=== PATIENT | female | born 1965 | race Caucasian/White ===

== ENCOUNTER 2018-12-30 09:12 | Day surgery (SDC) | payer OTHER ==
[~2018-12-30] VITALS: Ht 165.1 cm; Wt 66.5 kg
[~2018-12-30 09:12] MED LIST: (None)15 G1 EXT; ALEVE220 MG PO; AMABELZ 0.5 MG1 EACH PO; Aspir 8181 MG PO; Aspirin EC81 MG PO; DIPH50 PO; DOCU100 PO; ESTRADIOL-NORE1 EACH PO; EZET10 PO; FISH OIL 1,0001 EAC1 PO; FISH1000 PO; Flovent Diskus50 MCG IH; LAMISIL PO; LISI20; LISI20 PO; Multiple Vitam1 EAC1 PO; Multiple Vitam1 EACH PO; OLOP.1OPSO BOTHEYES; OMEPRAZOLE MAGN20 MG PO; PROBIOTIC1 EAC1 PO; Prilosec Otc20 MG; Transderm-Scop1 EACH TD; VITAMIN E COMPLETE PO; ZOLP5 PO
[2018-12-30] MEDS ORDERED: TOCO1000 PO (10:29)
[2018-12-30] MEDS ORDERED: TOPROPHAN CAPS1 EACH PO (10:31)
--- NOTE | 2018-12-30 14:50 | NUR ---
12/30/18 1450 Katie Cramer PT GLO PO SNACKS AND JUICE. DC INSTRUCTUIONS GIVEN AND H/O ON AIR CELL BOOT PLUS DEMO. REUSEABLE ICE PACK GIVEN AND PT AND HER SYLVIA STATED UNDERSTANDING. BILL TOOK RX TO PHARMACY WHILE PT WAS IN SURGERY. PT WAS GIVEN A NORCO AT 1300. DC'D IN STBLE CONDITION AT 1340 VIA WC AND SBA GLO WELL
== END 2018-12-30 13:40 | disposition home or self-care (01) ==
LOC: ORSCSDS 09:12
PROVIDERS: Orthopaedic Surgery
PROC: 0QBN0ZZ Excision of Right Metatarsal, Open Approach (ICD-10-PCS; principal; 2018-12-30 10:40)
DX: M20.21 Hallux rigidus, right foot (principal); I10 Essential (primary) hypertension; K21.9 Gastro-esophageal reflux disease without esophagitis; Z79.899 Other long term (current) drug therapy
CPT/HCPCS: J0690; J2250; J3010; J7120

== ENCOUNTER 2020-01-19 08:02 | Day surgery (SDC) | payer OTHER ==
[~2020-01-19] VITALS: Ht 165 cm; Wt 68.3 kg
[~2020-01-19 08:02] MED LIST changes: +BENADRYL25 M1 PO; +TOCO1000 PO; +TOPROPHAN CAPS1 EACH PO
--- NOTE | 2020-01-19 08:53 | NUR ---
Ambulatory in Day Surgery. History, Chart, Medications and Allergies reviewed before start of procedure.Patient confirms NPO status and agrees with scheduled surgery. Patient states colon prep results clear.Lungs clear T/O to Auscultation.
--- NOTE | 2020-01-19 09:47 | NUR ---
01/19/20 0947 Bolivar Harris History, Chart, Medications and Allergies reviewed before start of procedure.MONITOR INTACT WITH CONTINUOUS PULSE OXIMETRY AND INTERMITTENT BP.3-LEAD EKG REVIEWED WITH PHYSICIAN PRIOR TO START OF PROCEDURE.O2 VIA N/C INTACT THROUGHOUT SEDATION/PROCEDURE. PATIENT DETERMINED TO BE ASA APPROPRIATE FOR PROPOFOL SEDATION PRIOR TO START OF PROCEDURE BY DR. BETANCOURT.
--- NOTE | 2020-01-19 10:44 | NUR ---
Discharge instructions reviewed with patient. Patient verbalizes understanding. Copy given to patient to take home. Discharged via wheelchair to private car for ride home.
== END 2020-01-19 10:46 | disposition home or self-care (01) ==
LOC: ORSCMMR 08:02 → ORD 09:00 → ORSCMMR 10:46
PROVIDERS: Internal Medicine Gastroenterology
PROC: 0DBN8ZX Excision of Sigmoid Colon, Via Natural or Artificial Opening Endoscopic, Diagnostic (ICD-10-PCS; principal; 2020-01-19 09:00)
DX: Z12.11 Encounter for screening for malignant neoplasm of colon (principal); Z86.010 Personal history of colon polyps; D12.5 Benign neoplasm of sigmoid colon; K57.30 Diverticulosis of large intestine without perforation or abscess without bleeding; E78.00 Pure hypercholesterolemia, unspecified; I10 Essential (primary) hypertension; Z79.899 Other long term (current) drug therapy
CPT/HCPCS: 88305; J2704; J7120

== ENCOUNTER 2025-04-06 07:59 | Day surgery (SDC) | payer OTHER ==
[~2025-04-06] VITALS: Ht 162.6 cm; Wt 69.7 kg
[2025-04-06] VITALS (15 sets, daily range): BP systolic 111–141; BP diastolic 72–99
[~2025-04-06 07:59] MED LIST changes: +Flonase 0.05% N16 GM; -LISI20; +Lactated Ringer's 1,000 ML IV SCH; +VALA500 PO
[2025-04-06] MEDS ORDERED: propofoL 40 ML IV ONE (08:59)
--- NOTE | 2025-04-06 09:05 | NUR ---
04/06/25 0905 Bolivar Harris CONFIRMED AND REVIEWED H&P, MEDCICATIONS, ALLERGIES, MEDICAL HISTORY, RESPIRATORY HISTORY, VITAL SIGNS, 3-LEAD EKG, CONSENTS, AND PHYSICIAN ORDERS. PATIENT CONFIRMS NPO STATUS AND AGREES WITH SCHEDULED PROCEDURE. MONITOR INTACT WITH CONTINUOUS PULSE OXIMETRY, CAPNOGRAPHY, 3-LEAD EKG, INTERMITTENT BP. SUPPLEMENTAL O2 TO BE TITRATED THROUGHOUT PROCEDURE TO MAINTAIN O2 SATURATION ABOVE 90%. PATIENT DETERMINED TO BE ASA APPROPRIATE FOR PROPOFOL SEDATION PRIOR TO START OF PROCEDURE BY DR. BETANCOURT.
[2025-04-06] MEDS ORDERED: Midazolam HCl 1MG / ML 2ML Vial ONE (09:14)
== END 2025-04-06 10:05 | disposition home or self-care (01) ==
LOC: ORSCMMR 07:59 → ORD 09:00 → ORSCMMR 09:00
PROVIDERS: Internal Medicine Gastroenterology
PROC: 0DBH8ZX Excision of Cecum, Via Natural or Artificial Opening Endoscopic, Diagnostic (ICD-10-PCS; principal; 2025-04-06 09:00)
DX: Z12.11 Encounter for screening for malignant neoplasm of colon (principal); Z86.0102 Personal history of hyperplastic colon polyps; K63.89 Other specified diseases of intestine; D12.0 Benign neoplasm of cecum; E78.00 Pure hypercholesterolemia, unspecified; I10 Essential (primary) hypertension; K59.09 Other constipation; Z79.899 Other long term (current) drug therapy
CPT/HCPCS: 88305; J2250; J2704; J7120